=== PATIENT | female | born 1930 | race American Indian/Alaskan Native ===

== ENCOUNTER 2017-12-24 12:05 | Inpatient (IN) | payer MEDICARE ==
[2017-12-24] MEDS ORDERED: ZOFRAN ONE (12:14)
--- NOTE | 2017-12-24 12:45 | Emergency Department Report ---
ED Altered Mental Status HPI - General Chief Complaint: Altered Mental Status Stated Complaint: ALTERED MENTAL STATUS Time Seen by Provider: 12/24/17 12:40 Source: family, EMS Mode of arrival: Stretcher Limitations: Altered Mental Status - History of Present Illness Initial Comments: He is an 87-year-old female that presents to emergency room with altered mental status 2 hours. Patient was brought in by EMS. Recommendations family is at bedside. Patient's family states the patient ate breakfast as normal to her medications as normal and then became unresponsive. Patient moves all 4 extremities to pain. Patient opens her eyes to painful stimuli. Patient is nonverbal but will answer questions by shaking her head. Per family patient's Lasix and hydrochlorothiazide were increased 1 week ago for her CHF. MD Complaint: altered mental status, decreased responsiveness -: Sudden Severity: severe Consistency of Symptoms: constant Associated Symptoms: nausea/vomiting Treatments Prior to Arrival: oxygen - Related Data Home Medications Medication Instructions Recorded Confirmed Last Taken Atenolol [Tenormin] 25 mg PO DAILY 12/24/17 12/24/17 12/24/17 Furosemide [Lasix TAB] 40 mg PO QDAY 12/24/17 12/24/17 12/24/17 Hydrochlorothiazide [HCTZ] 25 mg PO QDAY 12/24/17 12/24/17 12/24/17 Losartan [Cozaar] 50 mg PO QDAY 12/24/17 12/24/17 12/24/17 Metoprolol [Lopressor] 25 mg PO BID 12/24/17 12/24/17 12/24/17 Allergies Allergy/AdvReac Type Severity Reaction Status Date / Time No Known Allergies Allergy Unverified 12/24/17 12:23 ED Review of Systems ROS: Stated complaint: ALTERED MENTAL STATUS Other details as noted in HPI Comment: Unobtainable due to pts medical conditions ED Past Medical Hx - Past Medical History Previous Medical History?: Yes Hx Hypertension: Yes Hx Congestive Heart Failure: Yes - Surgical History Past Surgical History?: No - Family History Family history: hypertension - Social History Smoking Status: Never Smoker Substance Use Type: None - Medications Home Medications: Home Medications Medication Instructions Recorded Confirmed Last Taken Type Atenolol [Tenormin] 25 mg PO DAILY 12/24/17 12/24/17 12/24/17 History Furosemide [Lasix TAB] 40 mg PO QDAY 12/24/17 12/24/17 12/24/17 History Hydrochlorothiazide [HCTZ] 25 mg PO QDAY 12/24/17 12/24/17 12/24/17 History Losartan [Cozaar] 50 mg PO QDAY 12/24/17 12/24/17 12/24/17 History Metoprolol [Lopressor] 25 mg PO BID 12/24/17 12/24/17 12/24/17 History ED Physical Exam - General Limitations: Altered Mental Status General appearance: lethargic - Head Head exam: Present: atraumatic, normocephalic - Eye Eye exam: Present: normal appearance, PERRL Pupils: Present: normal accommodation - ENT ENT exam: Present: mucous membranes moist - Neck Neck exam: Present: normal inspection - Respiratory Respiratory exam: Present: normal lung sounds bilaterally. Absent: respiratory distress - Cardiovascular Cardiovascular Exam: Present: regular rate, normal rhythm. Absent: systolic murmur, diastolic murmur, rubs, gallop - GI/Abdominal GI/Abdominal exam: Present: soft, normal bowel sounds - Extremities Exam Extremities exam: Present: normal inspection - Back Exam Back exam: Present: normal inspection - Neurological Exam Neurological exam: Present: altered - Expanded Neurological Exam Expanded Best Eye Response ([place]): (2) open to pain Best Motor Response ([place]): (4) withdraws to pain Best Verbal Response ([place]): (2) incomprehsible sounds [place] Total: 8 - Psychiatric Psychiatric exam: Present: normal affect, normal mood - Skin Skin exam: Present: warm, dry, intact, normal color. Absent: rash ED Course Vital Signs 12/24/17 12/24/17 12/24/17 12:24 12:30 13:00 Pulse Rate 57 L Respiratory 15 10 L Rate Blood Pressure 189/84 Blood Pressure [Left] O2 Sat by Pulse 97 96 97 Oximetry 12/24/17 12/24/17 12/24/17 13:30 13:45 14:00 Pulse Rate 58 L 57 L 56 L Respiratory 13 13 Rate Blood Pressure 189/84 180/83 Blood Pressure 184/80 [Left] O2 Sat by Pulse 97 98 Oximetry 12/24/17 12/24/17 12/24/17 14:30 14:42 15:00 Pulse Rate 57 L 57 L 64 Respiratory 14 15 Rate Blood Pressure 176/85 176/85 176/85 Blood Pressure [Left] O2 Sat by Pulse 96 96 Oximetry 12/24/17 12/24/17 12/24/17 15:30 16:00 16:30 Pulse Rate 62 62 62 Respiratory 15 14 14 Rate Blood Pressure 111/47 112/47 98/50 Blood Pressure [Left] O2 Sat by Pulse 96 95 97 Oximetry - Reevaluation(s) Reevaluation #1: 12/24/17 15:00 - BP better. Patient improving. Patient now lethargic but answering questions appropriately and verbal. Patient now opens her eyes to voice. Will admit patient to the hospital. - Lab Data Result diagrams: 12/24/17 12:48 12/24/17 12:48 Lab Results 12/24/17 12/24/17 12/24/17 Range/Units 12:21 12:48 12:48 WBC 5.5 (4.5-11.0) K/mm3 RBC 4.66 (3.65-5.03) M/mm3 Hgb 14.4 H (10.1-14.3) gm/dl Hct 43.1 H (30.3-42.9) % MCV 93 (79-97) fl MCH 31 (28-32) pg MCHC 33 (30-34) % RDW 13.8 (13.2-15.2) % Plt Count 307 (140-440) K/mm3 Lymph % (Auto) 24.6 (13.4-35.0) % [place] % (Auto) 8.5 H (0.0-7.3) % Eos % (Auto) 3.3 (0.0-4.3) % Baso % (Auto) 0.6 (0.0-1.8) % Lymph # 1.4 (1.2-5.4) K/mm3 [place] # 0.5 (0.0-0.8) K/mm3 Eos # 0.2 (0.0-0.4) K/mm3 Baso # 0.0 (0.0-0.1) K/mm3 Seg Neutrophils % 63.0 (40.0-70.0) % Seg Neutrophils # 3.5 (1.8-7.7) K/mm3 PT 13.1 (12.2-14.9) Sec. INR 0.95 (0.87-1.13) APTT 28.6 (24.2-36.6) Sec. Sodium (137-145) mmol/L Potassium (3.6-5.0) mmol/L Chloride (98-107) mmol/L Carbon Dioxide (22-30) mmol/L Anion Gap mmol/L BUN (7-17) mg/dL Creatinine (0.7-1.2) mg/dL Estimated GFR ml/min BUN/Creatinine Ratio % Glucose (65-100) mg/dL POC Glucose 121 H (70-105) Lactic Acid (0.7-2.0) mmol/L Calcium (8.4-10.2) mg/dL Total Bilirubin (0.1-1.2) mg/dL AST (5-40) units/L ALT (7-56) units/L Alkaline Phosphatase (35-129) units/L Troponin T (0.00-0.029) ng/mL NT-Pro-B Natriuret Pep (0-900) pg/mL Total Protein (6.3-8.2) g/dL Albumin (3.9-5) g/dL Albumin/Globulin Ratio % Urine Color (Yellow) Urine Turbidity (Clear) Urine pH (5.0-7.0) Ur Specific [place] (1.003-1.030) Urine Protein (Negative) mg/dL Urine Glucose (UA) (Negative) mg/dL Urine Ketones (Negative) mg/dL Urine Blood (Negative) Urine Nitrite (Negative) Urine Bilirubin (Negative) Urine Urobilinogen (<2.0) mg/dL Ur Leukocyte Esterase (Negative) Urine WBC (Auto) (0.0-6.0) /HPF Urine RBC (Auto) (0.0-6.0) /HPF Urine Bacteria (Auto) (Negative) /HPF Urine Yeast (Bud[place]) /HPF Urine Opiates Screen Urine Methadone Screen Ur Barbiturates Screen Ur Phencyclidine Scrn Ur Amphetamines Screen U Benzodiazepines Scrn Urine Cocaine Screen U Marijuana (THC) Screen Drugs of Abuse Note 12/24/17 12/24/17 12/24/17 Range/Units 12:48 12:48 12:48 WBC (4.5-11.0) K/mm3 RBC (3.65-5.03) M/mm3 Hgb (10.1-14.3) gm/dl Hct (30.3-42.9) % MCV (79-97) fl MCH (28-32) pg MCHC (30-34) % RDW (13.2-15.2) % Plt Count (140-440) K/mm3 Lymph % (Auto) (13.4-35.0) % [place] % (Auto) (0.0-7.3) % Eos % (Auto) (0.0-4.3) % Baso % (Auto) (0.0-1.8) % Lymph # (1.2-5.4) K/mm3 [place] # (0.0-0.8) K/mm3 Eos # (0.0-0.4) K/mm3 Baso # (0.0-0.1) K/mm3 Seg Neutrophils % (40.0-70.0) % Seg Neutrophils # (1.8-7.7) K/mm3 PT (12.2-14.9) Sec. INR (0.87-1.13) APTT (24.2-36.6) Sec. Sodium 127 L (137-145) mmol/L Potassium 3.3 L (3.6-5.0) mmol/L Chloride 83.6 L (98-107) mmol/L Carbon Dioxide 28 (22-30) mmol/L Anion Gap 19 mmol/L BUN 19 H (7-17) mg/dL Creatinine 0.6 L (0.7-1.2) mg/dL Estimated GFR > 60 ml/min BUN/Creatinine Ratio 32 % Glucose 124 H (65-100) mg/dL POC Glucose (70-105) Lactic Acid 2.00 (0.7-2.0) mmol/L Calcium 9.4 (8.4-10.2) mg/dL Total Bilirubin 0.70 (0.1-1.2) mg/dL AST 23 (5-40) units/L ALT 15 (7-56) units/L Alkaline Phosphatase 114 (35-129) units/L Troponin T 0.014 (0.00-0.029) ng/mL NT-Pro-B Natriuret Pep 4322 H (0-900) pg/mL Total Protein 7.5 (6.3-8.2) g/dL Albumin 3.9 (3.9-5) g/dL Albumin/Globulin Ratio 1.1 % Urine Color (Yellow) Urine Turbidity (Clear) Urine pH (5.0-7.0) Ur Specific [place] (1.003-1.030) Urine Protein (Negative) mg/dL Urine Glucose (UA) (Negative) mg/dL Urine Ketones (Negative) mg/dL Urine Blood (Negative) Urine Nitrite (Negative) Urine Bilirubin (Negative) Urine Urobilinogen (<2.0) mg/dL Ur Leukocyte Esterase (Negative) Urine WBC (Auto) (0.0-6.0) /HPF Urine RBC (Auto) (0.0-6.0) /HPF Urine Bacteria (Auto) (Negative) /HPF Urine Yeast (Budding) /HPF Urine Opiates Screen Urine Methadone Screen Ur Barbiturates Screen Ur Phencyclidine Scrn Ur Amphetamines Screen U Benzodiazepines Scrn Urine Cocaine Screen U Marijuana (THC) Screen Drugs of Abuse Note 12/24/17 12/24/17 12/24/17 Range/Units 13:37 13:37 15:41 WBC (4.5-11.0) K/mm3 RBC (3.65-5.03) M/mm3 Hgb (10.1-14.3) gm/dl Hct (30.3-42.9) % MCV (79-97) fl MCH (28-32) pg MCHC (30-34) % RDW (13.2-15.2) % Plt Count (140-440) K/mm3 Lymph % (Auto) (13.4-35.0) % [place] % (Auto) (0.0-7.3) % Eos % (Auto) (0.0-4.3) % Baso % (Auto) (0.0-1.8) % Lymph # (1.2-5.4) K/mm3 [place] # (0.0-0.8) K/mm3 Eos # (0.0-0.4) K/mm3 Baso # (0.0-0.1) K/mm3 Seg Neutrophils % (40.0-70.0) % Seg Neutrophils # (1.8-7.7) K/mm3 PT (12.2-14.9) Sec. INR (0.87-1.13) APTT (24.2-36.6) Sec. Sodium (137-145) mmol/L Potassium (3.6-5.0) mmol/L Chloride (98-107) mmol/L Carbon Dioxide (22-30) mmol/L Anion Gap mmol/L BUN (7-17) mg/dL Creatinine (0.7-1.2) mg/dL Estimated GFR ml/min BUN/Creatinine Ratio % Glucose (65-100) mg/dL POC Glucose (70-105) Lactic Acid 1.40 (0.7-2.0) mmol/L Calcium (8.4-10.2) mg/dL Total Bilirubin (0.1-1.2) mg/dL AST (5-40) units/L ALT (7-56) units/L Alkaline Phosphatase (35-129) units/L Troponin T (0.00-0.029) ng/mL NT-Pro-B Natriuret Pep (0-900) pg/mL Total Protein (6.3-8.2) g/dL Albumin (3.9-5) g/dL Albumin/Globulin Ratio % Urine Color Yellow (Yellow) Urine Turbidity Clear (Clear) Urine pH 8.0 H (5.0-7.0) Ur Specific [place] 1.008 (1.003-1.030) Urine Protein <15 mg/dl (Negative) mg/dL Urine Glucose (UA) Neg (Negative) mg/dL Urine Ketones Neg (Negative) mg/dL Urine Blood Neg (Negative) Urine Nitrite Neg (Negative) Urine Bilirubin Neg (Negative) Urine Urobilinogen < 2.0 (<2.0) mg/dL Ur Leukocyte Esterase Neg (Negative) Urine WBC (Auto) 1.0 (0.0-6.0) /HPF Urine RBC (Auto) 2.0 (0.0-6.0) /HPF Urine Bacteria (Auto) 1+ (Negative) /HPF Urine Yeast (Budding) Few /HPF Urine Opiates Screen Presumptive negative Urine Methadone Screen Presumptive negative Ur Barbiturates Screen Presumptive negative Ur Phencyclidine Scrn Presumptive negative Ur Amphetamines Screen Presumptive negative U Benzodiazepines Scrn Presumptive negative Urine Cocaine Screen Presumptive negative U Marijuana (THC) Screen Presumptive negative Drugs of Abuse Note Disclamer - EKG Data -: EKG Interpreted by Ok EKG shows normal: sinus rhythm, QRS complexes, ST-T waves Rate: bradycardia Interpretation: other (prolonged VT interval consistent with a first-degree AV block) - Radiology Data Radiology results: report reviewed, image reviewed interpreted by me: no Acute process. Cardiomegaly - Medical Decision Making She is a 7-year-old female who presented with altered mental status found to have hyper and hyponatremia. Patient will be admitted to the hospital for further evaluation. Discussed case with hospitalist. Hospitalist agreed to admit. - Differential Diagnosis Imbalance. Dehydration. CHF. Altered mental status. Critical Care Time: Yes Critical care attestation.: If time is entered above; I have spent that time in minutes in the direct care of this critically ill patient, excluding procedure time. Critical Care Time: 45 minutes for critical care time ED Disposition Clinical Impression: Altered mental status, Hyponatremia, Lethargic Disposition: [id number] OP ADMIT IP TO THIS HOSP Is pt being admited?: Yes Does the pt Need Aspirin: No Condition: Critical Time of Disposition: 15:13
[2017-12-24 13:04] LABS: Basophils % (Auto) 0.6 % (0.0-1.8); Eosinophils # (Auto) 0.2 K/mm3 (0.0-0.4); Eosinophils % (Auto) 3.3 % (0.0-4.3); Hematocrit 43.1 % (30.3-42.9); Hemoglobin 14.4 gm/dl (10.1-14.3); Lymphocytes # (Auto) 1.4 K/mm3 (1.2-5.4); Lymphocytes % (Auto) 24.6 % (13.4-35.0); Mean Corpuscular HGB Conc 33 % (30-34); Mean Corpuscular Hemoglobin 31 pg (28-32); Mean Corpuscular Volume 93 fl (79-97); Monocytes # (Auto) 0.5 K/mm3 (0.0-0.8); Monocytes % (Auto) 8.5 % (0.0-7.3); Platelet Count 307 K/mm3 (140-440); Red Blood Count 4.66 M/mm3 (3.65-5.03); Red Cell Distribution Width 13.8 % (13.2-15.2)
--- NOTE | 2017-12-24 13:05 | Cat Scan Report ---
CT HEAD WITHOUT CONTRAST INDICATION: Altered mental status. COMPARISON: None similar. FINDINGS: Noncontrast head CT demonstrates age-appropriate ventricles and sulci without acute or recent infarct, hemorrhage, mass effect or midline shift. Mild periventricular white matter hypodensities. No abnormal extra-axial fluid collections. Posterior fossa structures and basilar cisterns appear within normal limits. Normal imaged eye globes. Clear paranasal sinuses and mastoid air cells. Intact calvarium. Normal overlying scalp soft tissues. Few radiopaque dental material incidentally noted. Atherosclerotic ICA calcifications. CONCLUSION: No acute intracranial CT abnormality with age-appropriate atrophy and microvascular changes, as described. Thank you for the opportunity to participate in this patient's care.
[2017-12-24 13:20] LABS: Alanine Aminotransferase 15 units/L (7-56); Albumin 3.9 g/dL (3.9-5); BUN/Creatinine Ratio 32; Blood Urea Nitrogen 19 mg/dL (7-17); Calcium 9.4 mg/dL (8.4-10.2); Hemolysis Index 5
[2017-12-24] MEDS ORDERED: APRESOLINE IV ONE (13:59)
[2017-12-24 14:08] LABS: Bacteria,Urine 1+ /HPF (Negative); Bilirubin,Urine NEG (Negative); Blood,Urine NEG (Negative); Color,Urine Yellow (Yellow); Protein,Urine <15 mg/dL mg/dL (Negative); Urobilinogen,Urine < 2.0 mg/dL (<2.0)
--- NOTE | 2017-12-24 14:22 | XRay Report ---
PORTABLE CHEST INDICATION: Altered mental status. COMPARISON: None similar. FINDINGS: Portable, frontal chest radiograph demonstrates mild exaggerated cardiomediastinal silhouette/borderline cardiomegaly. Mild aortic knob calcifications. Somewhat crowded lung markings without definite focal consolidation, pleural effusions or CHF. EKG leads. Thoracic spondylosis. CONCLUSION: No significant acute chest process, as described. Thank you for the opportunity to participate in this patient's care.
[2017-12-24 14:30] LABS: INR 0.95 (0.87-1.13)
[2017-12-24 14:31] LABS: Partial Thromboplastin Time 28.6 Sec. (24.2-36.6)
[2017-12-24] MEDS ORDERED: NACL 0.9% 500 ML 0 ML ONE (14:59)
[2017-12-24 15:31] LABS: Amphetamine Screen,Urine PRESUMPTIVE NEGATIVE; Benzodiazepines Screen,Urine PRESUMPTIVE NEGATIVE; Cannabinoid Screen,Urine PRESUMPTIVE NEGATIVE; Cocaine Screen,Urine PRESUMPTIVE NEGATIVE; Methadone Screen,Urine PRESUMPTIVE NEGATIVE; Opiate Screen,Urine PRESUMPTIVE NEGATIVE
[2017-12-24] MEDS ORDERED: NACL 0.9% 500 ML 500 ML IV ONE (16:39)
[2017-12-24] MEDS ORDERED: NACL 0.9% 500 ML 500 ML ONE (16:41)
--- NOTE | 2017-12-24 17:03 | History and Physical Report ---
History of Present Illness Chief complaint: She is confused History of present illness: 87 YO Female with Dementia, HTN, Systolic CHF presents to ED for evaluation. Pt is unable to provide detailed history at time of exam, but patient daughter is as bedside and provides history. As per daughter, the patient was in her usual state of health but suddenly became unresponsive after her morning breakfast- shortly after taking her medications. EMS was notified, and patient transported to [facility] for further care and evaluation. PT daughter denies reports of fever, chills, CP, Palpitations, NVD, Trauma, BRBPR, loss of bowel/bladder continence, prolonged travel/immobility, individual/family history of DVT/PE, hemoptysis, shortness of breath. PT seen and evaluated in ED and found to have CHF decompensation, Moderate Hyponatremia, and Encephalopathy. Pt admitted to telemetry. Past History Past Medical History: heart failure, hypertension, other (dementia) Past Surgical History: No surgical history, Other (reviewed) Social history: single. denies: smoking, alcohol abuse, prescription drug abuse Family history: hypertension Medications and Allergies Allergies Allergy/AdvReac Type Severity Reaction Status Date / Time No Known Allergies Allergy Unverified 12/24/17 12:23 Home Medications Medication Instructions Recorded Confirmed Last Taken Type Atenolol [Tenormin] 25 mg PO DAILY 12/24/17 12/24/17 12/24/17 History Furosemide [Lasix TAB] 40 mg PO QDAY 12/24/17 12/24/17 12/24/17 History Hydrochlorothiazide [HCTZ] 25 mg PO QDAY 12/24/17 12/24/17 12/24/17 History Losartan [Cozaar] 50 mg PO QDAY 12/24/17 12/24/17 12/24/17 History Metoprolol [Lopressor] 25 mg PO BID 12/24/17 12/24/17 12/24/17 History Active Meds: Active Medications Sodium Chloride (Nacl 0.9% 500 Ml) 500 mls @ 999 mls/hr IV BOLUS ONE Stop: 12/24/17 17:09 Last Admin: 12/24/17 16:52 Dose: 999 mls/hr Review of Systems Constitutional: no weight loss, no weight gain, no fever Ears, nose, mouth and throat: no ear pain, no ear discharge, no tinnitis, no decreased hearing, no nose pain Breasts: no change in shape, no swelling, no mass Cardiovascular: no chest pain, no orthopnea, no palpitations, no rapid/ irregular heart beat, no edema Respiratory: no cough, no cough with sputum, no excessive sputum, no hemoptysis , no shortness of breath Gastrointestinal: no abdominal pain, no nausea, no vomiting, no diarrhea Genitourinary Female: no pelvic pain, no flank pain, no menorrhagia, no dysuria Rectal: no pain, no incontinence, no bleeding Musculoskeletal: no neck stiffness, no neck pain, no shooting arm pain, no arm numbness/tingling, no low back pain, no hot joints Integumentary: no rash, no pruritis, no redness, no sores, no wounds, no jaundice Neurological: weakness, syncope, confusion, no head injury, no vertigo, no headaches, no migraines, no convulsions, no aphasia, no change in speech Psychiatric: no anxiety, no memory loss, no change in sleep habits, no sleep disturbances, no insomnia, no hypersomnia Endocrine: no cold intolerance, no heat intolerance, no polyphagia, no excessive thirst, no polydipsia, no polyuria, no nocturia Hematologic/Lymphatic: no easy bruising, no easy bleeding, no lymphadenopathy, no lymphedema Allergic/Immunologic: no urticaria, no allergic rhinitis, no wheezing Exam - Constitutional Vitals: Temp Pulse Resp BP Pulse Ox 62 14 98/50 97 12/24/17 16:30 12/24/17 16:30 12/24/17 16:30 12/24/17 16:30 General appearance: Present: mild distress - EENT Eyes: Present: PERRL ENT: hearing intact, clear oral mucosa - Neck Neck: Present: supple, normal ROM - Respiratory Respiratory effort: normal Respiratory: bilateral: CTA - Cardiovascular Heart Sounds: Present: S1 & S2. Absent: rub, click - Extremities Extremities: pulses symmetrical, No edema Peripheral Pulses: within normal limits - Abdominal General gastrointestinal: Present: soft, non-tender, non-distended, normal bowel sounds Female genitourinary: Present: normal - Integumentary Integumentary: Present: clear, warm, dry - Musculoskeletal Musculoskeletal: gait normal, strength equal bilaterally - Psychiatric Psychiatric: no intact judgment & insight, no memory intact - Neurologic Neurologic: CNII-XII intact, moves all extremities Results - Labs CBC & Chem 7: 12/24/17 12:48 12/24/17 12:48 Labs: Abnormal lab results 12/24/17 12/24/17 12/24/17 Range/Units 12:21 12:48 12:48 Hgb 14.4 H (10.1-14.3) gm/dl Hct 43.1 H (30.3-42.9) % [place] % (Auto) 8.5 H (0.0-7.3) % Sodium 127 L (137-145) mmol/L Potassium 3.3 L (3.6-5.0) mmol/L Chloride 83.6 L (98-107) mmol/L BUN 19 H (7-17) mg/dL Creatinine 0.6 L (0.7-1.2) mg/dL Glucose 124 H (65-100) mg/dL POC Glucose 121 H (70-105) NT-Pro-B Natriuret Pep (0-900) pg/mL Urine pH (5.0-7.0) 12/24/17 12/24/17 Range/Units 12:48 13:37 Hgb (10.1-14.3) gm/dl Hct (30.3-42.9) % [place] % (Auto) (0.0-7.3) % Sodium (137-145) mmol/L Potassium (3.6-5.0) mmol/L Chloride (98-107) mmol/L BUN (7-17) mg/dL Creatinine (0.7-1.2) mg/dL Glucose (65-100) mg/dL POC Glucose (70-105) NT-Pro-B Natriuret Pep 4322 H (0-900) pg/mL Urine pH 8.0 H (5.0-7.0) Assessment and Plan - Patient Problems (1) CHF (congestive heart failure) Current Visit: Yes Status: Acute Qualifiers: Congestive heart failure type: systolic Congestive heart failure chronicity : acute Qualified Code(s): I50.21 - Acute systolic (congestive) heart failure Plan to address problem: Fluid restrictions, monitor bp q shift, afterload reduction, daily weight, diuresis as tolerated, monitor uop q shift, (2) CVA (cerebral vascular accident) Current Visit: Yes Status: Suspected Qualifiers: Precerebral and cerebral artery: unspecified precerebral artery Plan to address problem: Stroke protocol: CT head, MRI brain, MRA brain, Neuro checks, fall precautions, Echo, carotid doppler, PT/OT/ Speech Therapy (3) Encephalopathy Current Visit: Yes Status: Acute Plan to address problem: CT Head, neuro checks, treat hyponatremia, fall precautions, (4) Hyponatremia Current Visit: Yes Status: Acute Plan to address problem: Fluid restriction, serial bmp, Neuro checks, (5) DVT prophylaxis Current Visit: Yes Status: Acute
[2017-12-24] MEDS ORDERED: PHENERGAN PR PRN (17:07)
[2017-12-24] MEDS ORDERED: SODIUM CHLORIDE FLUSH SYRINGE 10 ML IV PRN (17:07)
[2017-12-24] MEDS ORDERED: REGLAN PO PRN (17:07)
[2017-12-24] MEDS ORDERED: TYLENOL PO PRN ×2 (17:07)
[2017-12-24] MEDS ORDERED: PROVENTIL IH PRN (17:07)
[2017-12-24] MEDS ORDERED: ZOFRAN IV PRN ×2 (17:07)
[2017-12-24] MEDS ORDERED: LASIX ONE (18:43)
[2017-12-24] MEDS: LASIX IV SCH (18:46)
[2017-12-25] MEDS: LASIX IV SCH ×2 (06:05→17:30)
[2017-12-25 07:15] LABS: Chol/HDL Ratio 3.41 %
[2017-12-25 10:08] LABS: BUN/Creatinine Ratio 23; Blood Urea Nitrogen 18 mg/dL (7-17); Calcium 8.8 mg/dL (8.4-10.2); Hemolysis Index 0
--- NOTE | 2017-12-25 10:17 | Progress Note ---
Assessment and Plan Assessment and plan: Chronic CHF (congestive heart failure) BNP elevated but no other clinical evidence to suggest acte exacerbation. CXR negative. Check ECHO. Cont. Fluid restrictions, monitor bp q shift, afterload reduction, daily weight, diuresis as tolerated, monitor uop q shift. Metabolic encephalopathy Doubt CVA. Etiology likely related to hyponatremia. F/U BMP. Hold HCTZ. Cont Stroke protocol for now. CT head negative. F/U MRI/MRA brain, Echo, carotid doppler. Cont. Neuro checks, fall precautions, PT/OT/ Speech Therapy Hyponatremia Fluid restriction, serial bmp, Neuro checks. hold HCTZ DVT prophylaxis Lovenox daily History Interval history: no new events overnight Hospitalist Physical - Constitutional Vitals: Temp Pulse Resp BP Pulse Ox 98.0 F 58 L 18 139/69 99 12/25/17 08:04 12/25/17 08:04 12/25/17 08:04 12/25/17 08:04 12/25/17 08:04 General appearance: Present: no acute distress - EENT Eyes: Present: PERRL, EOM intact ENT: hearing intact, clear oral mucosa, dentition normal - Neck Neck: Present: supple, normal ROM - Respiratory Respiratory effort: normal Respiratory: bilateral: CTA - Cardiovascular Rhythm: regular Heart Sounds: Present: S1 & S2. Absent: gallop, rub - Extremities Extremities: no ischemia, No edema, Full ROM - Abdominal General gastrointestinal: soft, non-tender, non-distended, normal bowel sounds - Integumentary Integumentary: Present: clear, warm, dry - Neurologic Neurologic: CNII-XII intact, moves all extremities Results - Labs CBC & Chem 7: 12/24/17 12:48 12/25/17 06:05 Labs: Laboratory Last Values WBC 5.5 K/mm3 (4.5-11.0) 12/24/17 12:48 RBC 4.66 M/mm3 (3.65-5.03) 12/24/17 12:48 Hgb 14.4 gm/dl (10.1-14.3) H 12/24/17 12:48 Hct 43.1 % (30.3-42.9) H 12/24/17 12:48 MCV 93 fl (79-97) 12/24/17 12:48 MCH 31 pg (28-32) 12/24/17 12:48 MCHC 33 % (30-34) 12/24/17 12:48 RDW 13.8 % (13.2-15.2) 12/24/17 12:48 Plt Count 307 K/mm3 (140-440) 12/24/17 12:48 Lymph % (Auto) 24.6 % (13.4-35.0) 12/24/17 12:48 [place] % (Auto) 8.5 % (0.0-7.3) H 12/24/17 12:48 Eos % (Auto) 3.3 % (0.0-4.3) 12/24/17 12:48 Baso % (Auto) 0.6 % (0.0-1.8) 12/24/17 12:48 Lymph # 1.4 K/mm3 (1.2-5.4) 12/24/17 12:48 [place] # 0.5 K/mm3 (0.0-0.8) 12/24/17 12:48 Eos # 0.2 K/mm3 (0.0-0.4) 12/24/17 12:48 Baso # 0.0 K/mm3 (0.0-0.1) 12/24/17 12:48 Seg Neutrophils % 63.0 % (40.0-70.0) 12/24/17 12:48 Seg Neutrophils # 3.5 K/mm3 (1.8-7.7) 12/24/17 12:48 PT 13.1 Sec. (12.2-14.9) 12/24/17 12:48 INR 0.95 (0.87-1.13) 12/24/17 12:48 APTT 28.6 Sec. (24.2-36.6) 12/24/17 12:48 Sodium 125 mmol/L (137-145) L 12/25/17 06:05 Potassium 3.5 mmol/L (3.6-5.0) L 12/25/17 06:05 Chloride 83.7 mmol/L (98-107) L 12/25/17 06:05 Carbon Dioxide 27 mmol/L (22-30) 12/25/17 06:05 Anion Gap 18 mmol/L 12/25/17 06:05 BUN 18 mg/dL (7-17) H 12/25/17 06:05 Creatinine 0.8 mg/dL (0.7-1.2) 12/25/17 06:05 Estimated GFR > 60 ml/min 12/25/17 06:05 BUN/Creatinine Ratio 23 % 12/25/17 06:05 Glucose 91 mg/dL (65-100) 12/25/17 06:05 POC Glucose 121 (70-105) H 12/24/17 12:21 Lactic Acid 1.40 mmol/L (0.7-2.0) 12/24/17 15:41 Calcium 8.8 mg/dL (8.4-10.2) 12/25/17 06:05 Total Bilirubin 0.70 mg/dL (0.1-1.2) 12/24/17 12:48 AST 23 units/L (5-40) 12/24/17 12:48 ALT 15 units/L (7-56) 12/24/17 12:48 Alkaline Phosphatase 114 units/L (35-129) 12/24/17 12:48 Troponin T 0.014 ng/mL (0.00-0.029) 12/24/17 12:48 NT-Pro-B Natriuret Pep 4322 pg/mL (0-900) H 12/24/17 12:48 Total Protein 7.5 g/dL (6.3-8.2) 12/24/17 12:48 Albumin 3.9 g/dL (3.9-5) 12/24/17 12:48 Albumin/Globulin Ratio 1.1 % 12/24/17 12:48 Triglycerides 67 mg/dL (2-149) 12/25/17 06:05 Cholesterol 133 mg/dL (50-199) 12/25/17 06:05 LDL Cholesterol Direct 81 mg/dL (50-130) 12/25/17 06:05 HDL Cholesterol 39 mg/dL (40-59) L 12/25/17 06:05 Cholesterol/HDL Ratio 3.41 % 12/25/17 06:05 Urine Color Yellow (Yellow) 12/24/17 13:37 Urine Turbidity Clear (Clear) 12/24/17 13:37 Urine pH 8.0 (5.0-7.0) H 12/24/17 13:37 Ur Specific [place] 1.008 (1.003-1.030) 12/24/17 13:37 Urine Protein <15 mg/dl mg/dL (Negative) 12/24/17 13:37 Urine Glucose (UA) Neg mg/dL (Negative) 12/24/17 13:37 Urine Ketones Neg mg/dL (Negative) 12/24/17 13:37 Urine Blood Neg (Negative) 12/24/17 13:37 Urine Nitrite Neg (Negative) 12/24/17 13:37 Urine Bilirubin Neg (Negative) 12/24/17 13:37 Urine Urobilinogen < 2.0 mg/dL (<2.0) 12/24/17 13:37 Ur Leukocyte Esterase Neg (Negative) 12/24/17 13:37 Urine WBC (Auto) 1.0 /HPF (0.0-6.0) 12/24/17 13:37 Urine RBC (Auto) 2.0 /HPF (0.0-6.0) 12/24/17 13:37 Urine Bacteria (Auto) 1+ /HPF (Negative) 12/24/17 13:37 Urine Yeast (Budding) Few /HPF 12/24/17 13:37 Urine Opiates Screen Presumptive negative 12/24/17 13:37 Urine Methadone Screen Presumptive negative 12/24/17 13:37 Ur Barbiturates Screen Presumptive negative 12/24/17 13:37 Ur Phencyclidine Scrn Presumptive negative 12/24/17 13:37 Ur Amphetamines Screen Presumptive negative 12/24/17 13:37 U Benzodiazepines Scrn Presumptive negative 12/24/17 13:37 Urine Cocaine Screen Presumptive negative 12/24/17 13:37 U Marijuana (THC) Screen Presumptive negative 12/24/17 13:37 Drugs of Abuse Note Disclamer 12/24/17 13:37
[2017-12-25] MEDS: LOVENOX SUB-Q SCH (15:00)
[2017-12-25] MEDS ORDERED: LOVENOX SUB-Q SCH (22:00)
[2017-12-26] MEDS: LASIX IV SCH ×2 (06:26→17:50)
--- NOTE | 2017-12-26 10:19 | Progress Note ---
Assessment and Plan Assessment and plan: Chronic CHF (congestive heart failure) BNP elevated but no other clinical evidence to suggest acute exacerbation. CXR negative. Check ECHO. Cont. Fluid restrictions, monitor bp q shift, afterload reduction, daily weight, diuresis as tolerated, monitor uop q shift. Metabolic encephalopathy Doubt CVA. No lateralizing symptomatology. Etiology likely related to hyponatremia. F/U BMP. Hold HCTZ. Cont Stroke protocol for now. CT head negative. F/U MRI/MRA brain, Echo, carotid doppler. Cont. Neuro checks, fall precautions, PT/OT/ Speech Therapy. Consider Neuro consult in am Hyponatremia Fluid restriction 1L, serial bmp, Neuro checks. hold HCTZ DVT prophylaxis Lovenox daily History Interval history: no new events overnight. Pt. seen in ECHO lab Hospitalist Physical - Constitutional Vitals: Temp Pulse Resp BP Pulse Ox 97.9 F 65 18 171/70 98 12/26/17 08:27 12/26/17 08:27 12/26/17 08:27 12/26/17 08:27 12/26/17 08:27 General appearance: Present: no acute distress - EENT Eyes: Present: PERRL, EOM intact ENT: hearing intact, clear oral mucosa, dentition normal - Neck Neck: Present: supple, normal ROM - Respiratory Respiratory effort: normal Respiratory: bilateral: CTA - Cardiovascular Rhythm: regular Heart Sounds: Present: S1 & S2. Absent: gallop, rub - Extremities Extremities: no ischemia, No edema, Full ROM - Abdominal General gastrointestinal: soft, non-tender, non-distended, normal bowel sounds - Integumentary Integumentary: Present: clear, warm, dry - Neurologic Neurologic: CNII-XII intact, moves all extremities Results - Labs CBC & Chem 7: 12/24/17 12:48 12/25/17 06:05 Labs: Laboratory Last Values WBC 5.5 K/mm3 (4.5-11.0) 12/24/17 12:48 RBC 4.66 M/mm3 (3.65-5.03) 12/24/17 12:48 Hgb 14.4 gm/dl (10.1-14.3) H 12/24/17 12:48 Hct 43.1 % (30.3-42.9) H 12/24/17 12:48 MCV 93 fl (79-97) 12/24/17 12:48 MCH 31 pg (28-32) 12/24/17 12:48 MCHC 33 % (30-34) 12/24/17 12:48 RDW 13.8 % (13.2-15.2) 12/24/17 12:48 Plt Count 307 K/mm3 (140-440) 12/24/17 12:48 Lymph % (Auto) 24.6 % (13.4-35.0) 12/24/17 12:48 [place] % (Auto) 8.5 % (0.0-7.3) H 12/24/17 12:48 Eos % (Auto) 3.3 % (0.0-4.3) 12/24/17 12:48 Baso % (Auto) 0.6 % (0.0-1.8) 12/24/17 12:48 Lymph # 1.4 K/mm3 (1.2-5.4) 12/24/17 12:48 [place] # 0.5 K/mm3 (0.0-0.8) 12/24/17 12:48 Eos # 0.2 K/mm3 (0.0-0.4) 12/24/17 12:48 Baso # 0.0 K/mm3 (0.0-0.1) 12/24/17 12:48 Seg Neutrophils % 63.0 % (40.0-70.0) 12/24/17 12:48 Seg Neutrophils # 3.5 K/mm3 (1.8-7.7) 12/24/17 12:48 PT 13.1 Sec. (12.2-14.9) 12/24/17 12:48 INR 0.95 (0.87-1.13) 12/24/17 12:48 APTT 28.6 Sec. (24.2-36.6) 12/24/17 12:48 Sodium 125 mmol/L (137-145) L 12/25/17 06:05 Potassium 3.5 mmol/L (3.6-5.0) L 12/25/17 06:05 Chloride 83.7 mmol/L (98-107) L 12/25/17 06:05 Carbon Dioxide 27 mmol/L (22-30) 12/25/17 06:05 Anion Gap 18 mmol/L 12/25/17 06:05 BUN 18 mg/dL (7-17) H 12/25/17 06:05 Creatinine 0.8 mg/dL (0.7-1.2) 12/25/17 06:05 Estimated GFR > 60 ml/min 12/25/17 06:05 BUN/Creatinine Ratio 23 % 12/25/17 06:05 Glucose 91 mg/dL (65-100) 12/25/17 06:05 POC Glucose 121 (70-105) H 12/24/17 12:21 Lactic Acid 1.40 mmol/L (0.7-2.0) 12/24/17 15:41 Calcium 8.8 mg/dL (8.4-10.2) 12/25/17 06:05 Total Bilirubin 0.70 mg/dL (0.1-1.2) 12/24/17 12:48 AST 23 units/L (5-40) 12/24/17 12:48 ALT 15 units/L (7-56) 12/24/17 12:48 Alkaline Phosphatase 114 units/L (35-129) 12/24/17 12:48 Troponin T 0.014 ng/mL (0.00-0.029) 12/24/17 12:48 NT-Pro-B Natriuret Pep 4322 pg/mL (0-900) H 12/24/17 12:48 Total Protein 7.5 g/dL (6.3-8.2) 12/24/17 12:48 Albumin 3.9 g/dL (3.9-5) 12/24/17 12:48 Albumin/Globulin Ratio 1.1 % 12/24/17 12:48 Triglycerides 67 mg/dL (2-149) 12/25/17 06:05 Cholesterol 133 mg/dL (50-199) 12/25/17 06:05 LDL Cholesterol Direct 81 mg/dL (50-130) 12/25/17 06:05 HDL Cholesterol 39 mg/dL (40-59) L 12/25/17 06:05 Cholesterol/HDL Ratio 3.41 % 12/25/17 06:05 Urine Color Yellow (Yellow) 12/24/17 13:37 Urine Turbidity Clear (Clear) 12/24/17 13:37 Urine pH 8.0 (5.0-7.0) H 12/24/17 13:37 Ur Specific [place] 1.008 (1.003-1.030) 12/24/17 13:37 Urine Protein <15 mg/dl mg/dL (Negative) 12/24/17 13:37 Urine Glucose (UA) Neg mg/dL (Negative) 12/24/17 13:37 Urine Ketones Neg mg/dL (Negative) 12/24/17 13:37 Urine Blood Neg (Negative) 12/24/17 13:37 Urine Nitrite Neg (Negative) 12/24/17 13:37 Urine Bilirubin Neg (Negative) 12/24/17 13:37 Urine Urobilinogen < 2.0 mg/dL (<2.0) 12/24/17 13:37 Ur Leukocyte Esterase Neg (Negative) 12/24/17 13:37 Urine WBC (Auto) 1.0 /HPF (0.0-6.0) 12/24/17 13:37 Urine RBC (Auto) 2.0 /HPF (0.0-6.0) 12/24/17 13:37 Urine Bacteria (Auto) 1+ /HPF (Negative) 12/24/17 13:37 Urine Yeast (Budding) Few /HPF 12/24/17 13:37 Urine Opiates Screen Presumptive negative 12/24/17 13:37 Urine Methadone Screen Presumptive negative 12/24/17 13:37 Ur Barbiturates Screen Presumptive negative 12/24/17 13:37 Ur Phencyclidine Scrn Presumptive negative 12/24/17 13:37 Ur Amphetamines Screen Presumptive negative 12/24/17 13:37 U Benzodiazepines Scrn Presumptive negative 12/24/17 13:37 Urine Cocaine Screen Presumptive negative 12/24/17 13:37 U Marijuana (THC) Screen Presumptive negative 12/24/17 13:37 Drugs of Abuse Note Disclamer 12/24/17 13:37
[2017-12-26] MEDS: LOVENOX SUB-Q SCH (11:07)
--- NOTE | 2017-12-26 11:12 | Magnetic Resonance Report ---
MRI scan of brain: History: Stroke. Findings: No evidence of restricted diffusion. Focal area of low signal intensity left cerebellum on diffusion weighted images with increased signal intensity on ADC mapping and on T2-weighted images. Decrease in signal intensity is noted on flair imaging. Periventricular areas of hyperintensity on flair imaging without corresponding restricted diffusion. No evidence of hemorrhage. No extra-axial fluid collection. No acute changes in the brainstem. Normal sinuses and mastoid air cells. Impression: No evidence of acute ischemia. No evidence of hemorrhage. Chronic ischemia left cerebellum. Small vessel ischemic changes.
--- NOTE | 2017-12-26 11:15 | Magnetic Resonance Report ---
MRA of brain: History: Stroke. Findings: The vessels of [place] are widely patent. No evidence of stenosis, occlusion, aneurysm or dissection. Dominant left vertebral artery. Right vertebral artery not visualized. Normal basilar artery. origin of right and left posterior cerebral arteries. Impression: Findings as detailed above.
[2017-12-27] MEDS: LASIX IV SCH (05:47)
[2017-12-27 09:46] VITALS: BP 136/69
--- NOTE | 2017-12-27 10:05 | Progress Note ---
Assessment and Plan Assessment and plan: Chronic CHF (congestive heart failure) BNP elevated but no other clinical evidence to suggest acute exacerbation. CXR negative. Check ECHO. Cont. Fluid restrictions, monitor bp q shift, afterload reduction, daily weight, diuresis as tolerated, monitor uop q shift. Metabolic encephalopathy Doubt CVA. No lateralizing symptomatology. Etiology likely related to hyponatremia. F/U BMP. Hold HCTZ. Cont Stroke protocol for now. CT head negative. F/U MRI/MRA brain, Echo, carotid doppler. Cont. Neuro checks, fall precautions, PT/OT/ Speech Therapy. PT recommends HHPT Hyponatremia Fluid restriction 1L, serial bmp, Neuro checks. hold HCTZ DVT prophylaxis Lovenox daily Disposition Anticipate d/c in am History Interval history: no new events overnight. Pt. seen in ECHO lab Hospitalist Physical - Constitutional Vitals: Temp Pulse Resp BP Pulse Ox 98.5 F 72 18 136/69 95 12/27/17 08:21 12/27/17 08:21 12/27/17 08:21 12/27/17 08:21 12/27/17 08:21 General appearance: Present: no acute distress - EENT Eyes: Present: PERRL, EOM intact ENT: hearing intact, clear oral mucosa, dentition normal - Neck Neck: Present: supple, normal ROM - Respiratory Respiratory effort: normal Respiratory: bilateral: CTA - Cardiovascular Rhythm: regular Heart Sounds: Present: S1 & S2. Absent: gallop, rub - Extremities Extremities: no ischemia, No edema, Full ROM - Abdominal General gastrointestinal: soft, non-tender, non-distended, normal bowel sounds - Integumentary Integumentary: Present: clear, warm, dry - Neurologic Neurologic: CNII-XII intact, moves all extremities Results - Labs CBC & Chem 7: 12/24/17 12:48 12/25/17 06:05 Labs: Laboratory Last Values WBC 5.5 K/mm3 (4.5-11.0) 12/24/17 12:48 RBC 4.66 M/mm3 (3.65-5.03) 12/24/17 12:48 Hgb 14.4 gm/dl (10.1-14.3) H 12/24/17 12:48 Hct 43.1 % (30.3-42.9) H 12/24/17 12:48 MCV 93 fl (79-97) 12/24/17 12:48 MCH 31 pg (28-32) 12/24/17 12:48 MCHC 33 % (30-34) 12/24/17 12:48 RDW 13.8 % (13.2-15.2) 12/24/17 12:48 Plt Count 307 K/mm3 (140-440) 12/24/17 12:48 Lymph % (Auto) 24.6 % (13.4-35.0) 12/24/17 12:48 [place] % (Auto) 8.5 % (0.0-7.3) H 12/24/17 12:48 Eos % (Auto) 3.3 % (0.0-4.3) 12/24/17 12:48 Baso % (Auto) 0.6 % (0.0-1.8) 12/24/17 12:48 Lymph # 1.4 K/mm3 (1.2-5.4) 12/24/17 12:48 [place] # 0.5 K/mm3 (0.0-0.8) 12/24/17 12:48 Eos # 0.2 K/mm3 (0.0-0.4) 12/24/17 12:48 Baso # 0.0 K/mm3 (0.0-0.1) 12/24/17 12:48 Seg Neutrophils % 63.0 % (40.0-70.0) 12/24/17 12:48 Seg Neutrophils # 3.5 K/mm3 (1.8-7.7) 12/24/17 12:48 PT 13.1 Sec. (12.2-14.9) 12/24/17 12:48 INR 0.95 (0.87-1.13) 12/24/17 12:48 APTT 28.6 Sec. (24.2-36.6) 12/24/17 12:48 Sodium 125 mmol/L (137-145) L 12/25/17 06:05 Potassium 3.5 mmol/L (3.6-5.0) L 12/25/17 06:05 Chloride 83.7 mmol/L (98-107) L 12/25/17 06:05 Carbon Dioxide 27 mmol/L (22-30) 12/25/17 06:05 Anion Gap 18 mmol/L 12/25/17 06:05 BUN 18 mg/dL (7-17) H 12/25/17 06:05 Creatinine 0.8 mg/dL (0.7-1.2) 12/25/17 06:05 Estimated GFR > 60 ml/min 12/25/17 06:05 BUN/Creatinine Ratio 23 % 12/25/17 06:05 Glucose 91 mg/dL (65-100) 12/25/17 06:05 POC Glucose 121 (70-105) H 12/24/17 12:21 Lactic Acid 1.40 mmol/L (0.7-2.0) 12/24/17 15:41 Calcium 8.8 mg/dL (8.4-10.2) 12/25/17 06:05 Total Bilirubin 0.70 mg/dL (0.1-1.2) 12/24/17 12:48 AST 23 units/L (5-40) 12/24/17 12:48 ALT 15 units/L (7-56) 12/24/17 12:48 Alkaline Phosphatase 114 units/L (35-129) 12/24/17 12:48 Troponin T 0.014 ng/mL (0.00-0.029) 12/24/17 12:48 NT-Pro-B Natriuret Pep 4322 pg/mL (0-900) H 12/24/17 12:48 Total Protein 7.5 g/dL (6.3-8.2) 12/24/17 12:48 Albumin 3.9 g/dL (3.9-5) 12/24/17 12:48 Albumin/Globulin Ratio 1.1 % 12/24/17 12:48 Triglycerides 67 mg/dL (2-149) 12/25/17 06:05 Cholesterol 133 mg/dL (50-199) 12/25/17 06:05 LDL Cholesterol Direct 81 mg/dL (50-130) 12/25/17 06:05 HDL Cholesterol 39 mg/dL (40-59) L 12/25/17 06:05 Cholesterol/HDL Ratio 3.41 % 12/25/17 06:05 Urine Color Yellow (Yellow) 12/24/17 13:37 Urine Turbidity Clear (Clear) 12/24/17 13:37 Urine pH 8.0 (5.0-7.0) H 12/24/17 13:37 Ur Specific [place] 1.008 (1.003-1.030) 12/24/17 13:37 Urine Protein <15 mg/dl mg/dL (Negative) 12/24/17 13:37 Urine Glucose (UA) Neg mg/dL (Negative) 12/24/17 13:37 Urine Ketones Neg mg/dL (Negative) 12/24/17 13:37 Urine Blood Neg (Negative) 12/24/17 13:37 Urine Nitrite Neg (Negative) 12/24/17 13:37 Urine Bilirubin Neg (Negative) 12/24/17 13:37 Urine Urobilinogen < 2.0 mg/dL (<2.0) 12/24/17 13:37 Ur Leukocyte Esterase Neg (Negative) 12/24/17 13:37 Urine WBC (Auto) 1.0 /HPF (0.0-6.0) 12/24/17 13:37 Urine RBC (Auto) 2.0 /HPF (0.0-6.0) 12/24/17 13:37 Urine Bacteria (Auto) 1+ /HPF (Negative) 12/24/17 13:37 Urine Yeast (Budding) Few /HPF 12/24/17 13:37 Urine Opiates Screen Presumptive negative 12/24/17 13:37 Urine Methadone Screen Presumptive negative 12/24/17 13:37 Ur Barbiturates Screen Presumptive negative 12/24/17 13:37 Ur Phencyclidine Scrn Presumptive negative 12/24/17 13:37 Ur Amphetamines Screen Presumptive negative 12/24/17 13:37 U Benzodiazepines Scrn Presumptive negative 12/24/17 13:37 Urine Cocaine Screen Presumptive negative 12/24/17 13:37 U Marijuana (THC) Screen Presumptive negative 12/24/17 13:37 Drugs of Abuse Note Disclamer 12/24/17 13:37
--- NOTE | 2017-12-27 10:36 | Discharge Summary ---
Providers - Providers Date of Admission: 12/24/17 17:08 Date of discharge: 12/27/17 Attending physician: JUDY RANGEL 12/24/17 17:08 Occupational Therapy Evaluate and Treat [CONS] Routine Comment: Reason For Exam: Neuro deficits Physical Therapy Evaluation and Treat [CONS] Routine Comment: Reason For Exam: Neuro deficits 12/24/17 17:10 Speech Therapy Evaluation and Treat [CONS] Routine Reason For Exam: swallow eval Primary care physician: TENONER OPERATOR Hospitalization Reason for admission: AMS Condition: Critical Hospital course: 87 YO Female with Dementia, HTN, Systolic CHF presents to ED for evaluation. Pt was unable to provide detailed history at time of exam, but patient daughter was at bedside and provided history. As per daughter, the patient was in her usual state of health but suddenly became unresponsive after her morning breakfast-shortly after taking her medications. EMS was notified, and patient transported to [facility] for further care and evaluation. PT daughter denied reports of fever, chills, CP, Palpitations, NVD, Trauma, BRBPR, loss of bowel/bladder continence, prolonged travel/immobility, individual/family history of DVT/PE, hemoptysis, shortness of breath. PT seen and evaluated in ED and found to have Moderate Hyponatremia and metabolic Encephalopathy. Pt admitted to telemetry. Pt. was evaluated and ruled out for CVA with negative MRI and doppler studies. Hyponatremia was treated with fluid restriciton and IV NS. The patients Na had not yet normalized and pt. required further treatment but daughter wanted to take the patient out of the hospital. Risks explained including . D/C time 32 min Disposition: [id number] LEFT AGAINST MED ADVICE Time spent for discharge: 32 - Discharge Diagnoses (1) Dementia Status: Acute (2) Altered mental status Status: Acute (3) Encephalopathy Status: Acute (4) Hyponatremia Status: Acute Core Measure Documentation - Palliative Care Palliative Care/ Comfort Measures: Not Applicable - Core Measures Any of the following diagnoses?: none Exam - Constitutional Vitals: Temp Pulse Resp BP Pulse Ox 98.5 F 72 18 136/69 95 12/27/17 08:21 12/27/17 08:21 12/27/17 08:21 12/27/17 08:21 12/27/17 08:21 General appearance: Present: no acute distress, well-nourished - EENT Eyes: Present: PERRL ENT: hearing intact, clear oral mucosa - Neck Neck: Present: supple, normal ROM - Respiratory Respiratory effort: normal Respiratory: bilateral: CTA - Cardiovascular Heart Sounds: Present: S1 & S2. Absent: rub, click - Extremities Extremities: pulses symmetrical, No edema Peripheral Pulses: within normal limits - Abdominal General gastrointestinal: Present: soft, non-tender, non-distended, normal bowel sounds Female genitourinary: Present: normal - Integumentary Integumentary: Present: clear, warm, dry - Musculoskeletal Musculoskeletal: gait normal, strength equal bilaterally - Psychiatric Psychiatric: appropriate mood/affect, intact judgment & insight - Neurologic Neurologic: CNII-XII intact, moves all extremities Plan Activity: no restrictions Follow up with: PRIMARY CARE, [Primary Care Provider] - 3-5 Days
[2017-12-27 11:06] LABS: BUN/Creatinine Ratio 17; Blood Urea Nitrogen 12 mg/dL (7-17); Calcium 8.8 mg/dL (8.4-10.2); Hemolysis Index 108
== END 2017-12-27 11:02 | disposition left against medical advice (07) | DRG 640 ==
LOC: ED 12:05 → 4A 17:08
PROVIDERS: ADMIT Internal Medicine; ATTEND Hospitalist
DX: E87.1 Hypo-osmolality and hyponatremia (principal); G93.41 Metabolic encephalopathy; I50.23 Acute on chronic systolic (congestive) heart failure; I11.0 Hypertensive heart disease with heart failure; F03.90 Unspecified dementia, unspecified severity, without behavioral disturbance, psychotic disturbance, mood disturbance, and anxiety; Z79.899 Other long term (current) drug therapy; Z82.49 Family history of ischemic heart disease and other diseases of the circulatory system
CPT/HCPCS: 36415; 70450; 70544; 70551; 71045; 80048; 80053; 80061; 80307; 81001; 82140; 82962; 83880; 84484; 85025; 85610; 85730; 93005; 93010; 93306; 93880; 94760; 96361; 96374; 96375; G8987-GO; G8988-GO; G8989-GO; G8996-GN; G8997-GN; G8998-GN; J0360; J1650; J1940; J2405; J7040